=== PATIENT | female | born 1990 | race Caucasian/White ===

== ENCOUNTER 2023-08-20 08:50 | Day surgery (SDC) | payer OTHER ==
[2023-08-20 09:20] VITALS: BMI 26.1
[2023-08-20] MEDS ORDERED: PROPOFOL 20 ML ONE (10:50)
[2023-08-20] MEDS ORDERED: Lidocaine 1% PF 5 ML VIAL ONE (10:51)
== END 2023-08-20 11:45 | disposition home or self-care (01) ==
LOC: CSHSDC 08:50
PROVIDERS: ATTEND Internal Medicine Gastroenterology
PROC: 0DJ08ZZ Inspection of Upper Intestinal Tract, Via Natural or Artificial Opening Endoscopic (ICD-10-PCS; principal; 2023-08-20)
DX: R10.13 Epigastric pain (principal)
CPT/HCPCS: J2704